=== PATIENT | female | born 1970 | race Caucasian/White ===

== ENCOUNTER 2019-06-29 19:53 | Observation (INO) ==
[2019-06-29] MEDS ORDERED: ACETAMINOPHEN 325 MG TABLET PO PRN (22:31)
[2019-06-29] MEDS ORDERED: ONDANSETRON 4 MG/2 ML VIAL IV PRN (22:31)
[2019-06-29] MEDS ORDERED: ALBUTEROL 2.5 MG/3 ML NEB RESP TX PRN (22:31)
[2019-06-29] MEDS ORDERED: ENOXAPARIN 40 MG/0.4 ML SYRINGE SUBCUT SCH (23:00)
[2019-06-30] MEDS ORDERED: traMADol 50 MG TABLET PO PRN (00:05)
[2019-06-30] MEDS ORDERED: DIVALPROEX 500 MG TABLET PO SCH (00:30)
[2019-06-30] MEDS ORDERED: AMITRIPTYLINE 25 MG TABLET PO SCH (00:30)
[2019-06-30] MEDS: GABAPENTIN 600 MG TABLET PO SCH ×2 (00:42→09:21)
[2019-06-30] MEDS ORDERED: LEVOTHYROXINE 125 MCG TABLET PO SCH (06:00)
[2019-06-30 07:00] LABS: Basophils # 0.1 10*3/uL (0.0-0.2); Basophils % 0.8 % (0.0-0.8); Eosinophils # 0.3 10*3/uL (0.0-0.87); Eosinophils % 4.1 % (0.00-10.9); Hematocrit 41.9 VOL% (35.7-47.0); Hemoglobin 13.6 GM/DL (12.0-16.0); Immature Granulocytes % 0.2 %; Immature Granulocytes Absolute 0.01 #; Lymphocytes # 2.4 10*3/uL (1.4-4.0); Lymphocytes % 37.6 % (21.3-54.2); Mean Corpuscular HGB Conc 32.5 GM/DL (32-36); Mean Corpuscular Volume 96.8 FL (87-102); Mean Platelet Volume 11.9 FL (9.6-12.0); Monocytes % 7.3 % (1.7-12.7); Platelet Count 173 T/CUMM (130-400); Red Blood Count 4.33 MC/CUMM (3.8-5.5); Red Cell Distribution Width 13.1 % (9.3-17.3); White Blood Count 6.3 T/CUMM (4-12)
[2019-06-30 07:31] LABS: Albumin 2.9 G/DL (3.4-5.0); Bilirubin,Total 0.4 MG/DL (0.2-1.0); Calcium 7.9 MG/DL (8.5-10.1); Osmolality,Calculated 285.7 MOS/KG (273-304); Total Protein 6.5 G/DL (6.4-8.3)
[2019-06-30 07:35] LABS: Apearance,Urine CLEAR (Clear); Bilirubin,Urine Negative (Negative); Blood, Urine Negative (Negative); Glucose,Urine (UA) Negative (Negative); Ketones,Urine Negative (Negative); Nitrite,Urine Negative (Negative); Protein,Urine Negative; RBC,Urine 1 /HPF (0-4); Urine Color Colorless (Yellow); Urine Specific Gravity 1.005 (1.001-1.035); Urine Urobilinogen < 2.0 EU/DL (0.2-1.0); WBC,Urine <1 /HPF (0-6)
[2019-06-30] MEDS ORDERED: METOPROLOL TARTRATE 25 MG TABLET PO SCH (08:00)
[2019-06-30] MEDS ORDERED: PANTOPRAZOLE 40 MG TABLET PO SCH ×2 (09:00)
[2019-06-30] MEDS ORDERED: CYCLOBENZAPRINE 10 MG TABLET PO SCH (09:00)
[2019-06-30] MEDS ORDERED: CHOLECALCIFEROL 5,000 UNIT TABLET PO SCH (09:00)
[2019-06-30] MEDS ORDERED: tiZANidine 4 MG TABLET PO SCH (09:00)
[2019-06-30] MEDS ORDERED: CETIRIZINE 10 MG TABLET PO SCH (09:00)
[2019-06-30] MEDS ORDERED: MONTELUKAST 10 MG TABLET PO SCH (09:00)
[2019-06-30] MEDS ORDERED: DEXTROAMPHETAMINE AMPHETAMINE PO SCH (09:00)
[2019-06-30] MEDS ORDERED: ESTRADIOL 1 MG TABLET PO SCH (21:00)
[2019-06-30] MEDS ORDERED: QUEtiapine 100 MG TABLET PO SCH (21:00)
== END 2019-06-30 16:08 | disposition home or self-care (01) ==
LOC: N.CC → SUATTDRO 22:22
PROVIDERS: ADMIT Internal Medicine; ATTEND Family Medicine